=== PATIENT | female | born 1960 ===

== ENCOUNTER 2017-02-09 01:38 | Emergency (ER) | payer MEDICAID ==
--- NOTE | 2017-02-09 01:42 | C.PDOC ---
History Of Present Illness Patient with Hx of PVC presents to ED with complaints of palpitations. Patient states she takes 10mg of beta phill daily. Patient is currently speaking in complete sentences and denies chest pain, SOB, fever, nausea, or vomiting. Time Seen by Provider: 02/09/17 01:41 History Per: Patient History/Exam Limitations: no limitations Onset/Duration Of Symptoms: Hrs Current Symptoms Are (Timing): Still Present Associated Symptoms: denies: Chest Pain Quality Of Symptoms: Rapid Heart Rate Severity: Mild Pain Scale Rating Of: 3 Exacerbating Factor(s): Pos: None Recent travel outside of the [place]: No Past Medical History Reviewed: Historical Data, Nursing Documentation, Vital Signs Vital Signs: Last Vital Signs Temp 98.3 F 02/09/17 01:47 Pulse 86 02/09/17 01:47 Resp 20 02/09/17 01:47 BP 136/67 02/09/17 01:47 Pulse Ox 95 02/09/17 04:51 - Medical History PMH: HTN Surgical History: No Surg Hx Family History: States: No Known Family Hx - Social History Hx Alcohol Use: No Hx Substance Use: No Review Of Systems Constitutional: Negative for: Fever, Chills Cardiovascular: Positive for: Palpitations. Negative for: Chest Pain Respiratory: Negative for: Shortness of Breath Gastrointestinal: Negative for: Nausea, Vomiting, Diarrhea Neurological: Negative for: Weakness Psych: Negative for: Depression, Suicidal ideation Physical Exam - Physical Exam Appears: Non-toxic, Other (Alert and awake; Slightly anxious ) Skin: Warm, Dry Head: Normacephalic Eye(s): bilateral: Normal Inspection Oral Mucosa: Moist Neck: Supple Chest: Symmetrical, No Tenderness Cardiovascular: Rhythm Regular Respiratory: No Rales, No Rhonchi, No Wheezing Gastrointestinal/Abdominal: Soft, No Tenderness Pelvic: No Vaginal Bleeding, No Vaginal Discharge, Other (small 0.2 cm abscess r labia majorum, ) Extremity: Normal ROM Extremity: Bilateral: Atraumatic Pulses: Left Dorsalis Pedis: Normal, Right Dorsalis Pedis: Normal Neurological/Psych: Oriented x3 Gait: Steady ED Course And Treatment - Laboratory Results Result Diagrams: 02/09/17 03:31 02/09/17 03:31 ECG: Interpreted By Me, Viewed By Me ECG Rhythm: Sinus Rhythm (82), Nonspecific Changes O2 Sat by Pulse Oximetry: 95 Pulse Ox Interpretation: Normal - Radiology CXR: Interpreted by Me, Viewed By Me CXR Interpretation: No: Infiltrates, Fracture, Pnemothorax Reevaluation Time: 04:49 Reassessment Condition: Improved Disposition Counseled Patient/Family Regarding: Studies Performed, Diagnosis, Need For Followup, Rx Given - Disposition Referrals: [facility] [Outside] [facility] [Outside] Disposition: HOME/ ROUTINE Disposition Time: 01:41 Condition: FAIR Additional Instructions: Please return if symptoms recur Prescriptions: Doxycycline Hyclate 100 mg PO BID #14 capsule Instructions: Palpitations (ED), Abscess (ED) - Clinical Impression Clinical Impression: Palpitations, Abscess of labia majora - Scribe Statement The provider has reviewed the documentation as recorded by the Emani Kwon All medical record entries made by the Kraigibluis were at my direction and personally dictated by me. I have reviewed the chart and agree that the record accurately reflects my personal performance of the history, physical exam, medical decision making, and the department course for this patient. I have also personally directed, reviewed, and agree with the discharge instructions and disposition.
[2017-02-09 01:51] VITALS: RESP 20; TEMP 98.3; O2SAT 95
[2017-02-09 03:40] LABS: HEMATOCRIT 43.7 % (34.0-47.0); MEAN CORPUSCULAR HEMOGLOBIN 27.2 pg (27.0-31.0); NRBC % 0.1 % (0.0-2.0); RED CELL DISTRIBUTION WIDTH 13.3 % (11.5-14.5)
[2017-02-09 03:49] LABS: ALB/GLOB RATIO 1.1 (1.0-2.1); ALKALINE PHOSPHATASE 124 U/L (38-126); ALT/SGPT 45 U/L (9-52); AST/SGOT 48 U/L (14-36); BILIRUBIN,TOTAL 0.4 mg/dL (0.2-1.3); BLOOD UREA NITROGEN 17 mg/dL (7-17); CALCIUM 8.4 mg/dl (8.6-10.4); CARBON DIOXIDE 28 mmol/L (22-30); CHLORIDE 100 mmol/L (98-107); GFR AFRICAN-AMERICAN > 60; GLUCOSE,RANDOM 113 mg/dL (65-105); POTASSIUM 3.6 mmol/L (3.6-5.2); SODIUM 135 mmol/L (132-148); TOTAL PROTEIN 7.2 g/dL (6.3-8.3)
[2017-02-09 03:56] LABS: BASO % 0.5 % (0.0-2.0); EOS # 0.2 K/uL (0.0-0.7); EOS % 2.7 % (0.0-4.0); LYMPH # 1.9 K/uL (1.0-4.3); MEAN CELL VOLUME 81.9 fL (81.0-99.0); MEAN CORPUSCULAR HGB CONC 33.3 g/dL (33.0-37.0); MEAN PLATELET VOLUME 9.8 fL (7.2-11.7); MONO % 11.1 % (0.0-10.0); WHITE BLOOD COUNT 8.7 K/uL (4.8-10.8)
[2017-02-09 03:58] LABS: RBC URINE 10 /hpf (0-3); URINE BACTERIA RARE (<OCC); URINE BILIRUBIN NEGATIVE (NEGATIVE); URINE BLOOD 2+ (NEGATIVE); URINE COLOR Straw (YELLOW); URINE GLUCOSE (UA) NORMAL (Normal); URINE KETONE NEGATIVE (NEGATIVE); URINE LEUKOCYTE ESTERASE 1+ Leu/uL (Negative); URINE PROTEIN NEGATIVE (NEGATIVE); URINE UROBILINOGEN NORMAL mg/dL (0.2-1.0); WBC URINE 7 /hpf (0-5)
[2017-02-09 04:19] LABS: THYROID STIMULATING HORMONE 2.44 mIU/L (0.46-4.68)
[2017-02-09 05:34] VITALS: BP 132/68; PULSE 84
--- NOTE | 2017-02-09 09:05 | RAD ---
PROCEDURE: CHEST RADIOGRAPH, 1 VIEW HISTORY: chest pain COMPARISON: None available. FINDINGS: LUNGS: Clear. PLEURA: No pneumothorax or pleural fluid seen. CARDIOVASCULAR: Normal. OSSEOUS STRUCTURES: No significant abnormalities. VISUALIZED UPPER ABDOMEN: Normal. OTHER FINDINGS: None. IMPRESSION: No active disease.
--- NOTE | 2017-02-09 13:11 | CARD ---
APPROVED REPORT EKG Measurement Heart [id number] CT [id number] <Conclusion> Normal sinus rhythm Moderate voltage criteria for LVH, may be normal variant Borderline ECG
== END 2017-02-09 05:00 | disposition home or self-care (01) ==
LOC: C.ER 01:38
DX: R00.2 Palpitations (principal); N76.4 Abscess of vulva; I10 Essential (primary) hypertension

== ENCOUNTER 2017-02-22 08:20 | Emergency (ER) | payer MEDICAID ==
[2017-02-22 08:36] VITALS: BMI 30.4
--- NOTE | 2017-02-22 09:27 | C.PDOC ---
History Of Present Illness Perlita Betancur is a 56 year old female, with a past medical history of hypertension, who presents to the emergency department complaining of left great toe and right middle injury after patient tripped on stairs while going down yesterday. Patient reports that she caught her left great toe on step and twisted it upwards. She also jammed her right middle finger on banister when she tried to support herself. She denies any loss of consciousness or head injury. No further medical complaints. PMD: Arun Mosquera V Time Seen by Provider: 02/22/17 09:16 Chief Complaint (Nursing): Lower Extremity Problem/Injury History Per: Patient History/Exam Limitations: no limitations Onset/Duration Of Symptoms: Days (x1) Current Symptoms Are (Timing): Still Present Past Medical History Reviewed: Historical Data, Nursing Documentation, Vital Signs Vital Signs: Last Vital Signs Temp 97.5 F L 02/22/17 10:46 Pulse 59 L 02/22/17 10:46 Resp 15 02/22/17 10:46 BP 116/73 02/22/17 10:46 Pulse Ox 97 02/22/17 10:54 - Medical History PMH: Cardia Arrhythmia (PALPITATIONS WITH PVC), HTN Surgical History: No Surg Hx Family History: States: Unknown Family Hx - Social History Hx Tobacco Use: No Hx Alcohol Use: No Hx Substance Use: No - Immunization History Hx Tetanus Toxoid Vaccination: Yes Hx Influenza Vaccination: No Hx Pneumococcal Vaccination: No Review Of Systems Except As Marked, All Systems Reviewed And Found Negative. Musculoskeletal: Positive for: Hand Pain (right middle finger injury), Foot Pain (left great toe injury) Physical Exam - Physical Exam Skin: Normal Color, Warm, Dry Head: Atraumatic Eye(s): bilateral: Normal Inspection Neck: Normal ROM, Supple Extremity: Tenderness (great toe finger on left dry box tender to the metatarsal phalangeal joint associated with redness and swelling. Right hand middle finger also tender), No Pedal Edema, Swelling (left great toe. Right hand middle finger swelling and tender) ED Course And Treatment O2 Sat by Pulse Oximetry: 97 (RA) Pulse Ox Interpretation: Normal Medical Decision Making Medical Decision Making: Initial Impression: Left great toe and right middle finger injury Initial Plan: Motrin tab 600 mg PO Tylenol 975 mg PO Foot left 3 views routine [RAD] Hand right 3 views [RAD] reevaluation 10:23 Foot X-Ray FINDINGS: BONES: No fracture. Posterior and inferior calcaneal spurring. Trace dorsal midfoot cortical hyperostoses JOINTS: Normal. SOFT TISSUES: Normal. OTHER FINDINGS: None. IMPRESSION: No fracture or dislocation. Calcaneal spurring 10:36 Hand X-Ray FINDINGS: BONES: . No fracture. No gross erosions seen JOINTS: Third DIP joint osteoarthrosis SOFT TISSUES: Normal. OTHER FINDINGS: None. IMPRESSION: No fractures dislocations or erosions seen Third DIP joint osteoarthrosis Disposition Counseled Patient/Family Regarding: Studies Performed, Diagnosis, Rx Given - Disposition Referrals: [facility] [Outside] Disposition: HOME/ ROUTINE Disposition Time: 10:30 Condition: STABLE Prescriptions: Ibuprofen [Motrin] 1 tab PO TID PRN #30 tab PRN Reason: Pain Instructions: [facility] (ED) Forms: General Discharge Instructions, [facility] (Eth[place]ian), Work Excuse - POA Present On Arrival: None - Clinical Impression Clinical Impression: Joint pain, Joint swelling - Scribe Statement Sean Mayberry Provider Attestation: All medical record entries made by the Scribe were at my direction and personally dictated by me. I have reviewed the chart and agree that the record accurately reflects my personal performance of the history, physical exam, medical decision making, and the department course for this patient. I have also personally directed, reviewed, and agree with the discharge instructions and disposition.
--- NOTE | 2017-02-22 10:25 | RAD ---
PROCEDURE: Left Foot Radiographs. HISTORY: PAIN S/P FALL COMPARISON: None. FINDINGS: BONES: No fracture. Posterior and inferior calcaneal spurring. Trace dorsal midfoot cortical hyperostoses JOINTS: Normal. SOFT TISSUES: Normal. OTHER FINDINGS: None. IMPRESSION: No fracture or dislocation. Calcaneal spurring
--- NOTE | 2017-02-22 10:37 | RAD ---
PROCEDURE: Right Hand Radiographs. HISTORY: PAIN S/P FALL COMPARISON: None. FINDINGS: BONES: . No fracture. No gross erosions seen JOINTS: Third DIP joint osteoarthrosis SOFT TISSUES: Normal. OTHER FINDINGS: None. IMPRESSION: No fractures dislocations or erosions seen Third DIP joint osteoarthrosis
[2017-02-22 10:46] VITALS: BP 116/73; PULSE 59; RESP 15; TEMP 97.5
[2017-02-22 10:47] VITALS: O2SAT 97
== END 2017-02-22 11:05 | disposition home or self-care (01) ==
LOC: C.ER 08:20
DX: M25.475 Effusion, left foot (principal); M25.572 Pain in left ankle and joints of left foot